=== PATIENT | female | born 1945 | race Caucasian/White ===

== ENCOUNTER → 2017-01-24 | Outpatient (CLI) | payer MEDICARE, OTHER ==
[~2017-01-24] MED LIST: LEVO88TA4 PO; LOSA1TAB17 PO; OMEP-110 PO
== END | disposition home or self-care (01) ==
LOC: CFH 13:53 → EDSTATUS 14:15
PROVIDERS: ATTEND Nurse Practitioner Family
DX: Z12.31 Encounter for screening mammogram for malignant neoplasm of breast (principal)
CPT/HCPCS: G0202

== ENCOUNTER → 2018-02-26 | Outpatient (CLI) | payer MEDICARE, OTHER ==
[~2018-02-26] MED LIST changes: -LOSA1TAB17 PO; +LOSA1TAB22 PO
== END | disposition home or self-care (01) ==
LOC: CFH 08:13
PROVIDERS: ATTEND Nurse Practitioner Family
DX: M85.88 Other specified disorders of bone density and structure, other site (principal)
CPT/HCPCS: 77080

== ENCOUNTER → 2018-02-27 | Outpatient (CLI) | payer MEDICARE, OTHER | END | disposition home or self-care (01) | LOC: CFH 07:12 | PROVIDERS: ATTEND Nurse Practitioner Family | DX: Z12.31 Encounter for screening mammogram for malignant neoplasm of breast (principal) | CPT/HCPCS: 77067 ==